=== PATIENT | female | born 1945 | race Caucasian/White ===

== ENCOUNTER → 2017-04-29 | Emergency (ER) | payer OTHER ==
[~2017-04-29] VITALS: Ht 160 cm; Wt 49.9 kg
[~2017-04-29] MED LIST: AMOX1TAB12 PO; AZITHROMYCIN500 MG PO; DIOVAN160 M1; DOLOGESIC CAPLE1 TAB PO; FEMARA2.5 MG; OSEL75CA PO; TUSICOF LIQUID120 ML PO; TUSSI PRES-B L120 M1 PO
== END | disposition home or self-care (01) ==
LOC: ER 00:51
DX: R42 Dizziness and giddiness (principal)

== ENCOUNTER 2018-03-29 08:19 | Outpatient (CLI) | payer OTHER | END 2018-03-29 08:28 | disposition home or self-care (01) | LOC: RAD 08:19 | DX: C50.411 Malignant neoplasm of upper-outer quadrant of right female breast (principal) ==

== ENCOUNTER 2018-11-17 09:24 | Emergency (ER) | payer OTHER ==
[~2018-11-17] VITALS: Ht 160 cm; Wt 56.2 kg
== END 2018-11-17 11:06 | disposition home or self-care (01) ==
LOC: ER 09:24
DX: K62.5 Hemorrhage of anus and rectum (principal)

== ENCOUNTER 2019-01-13 08:16 | Day surgery (SDC) | payer OTHER | END 2019-01-13 10:35 | disposition home or self-care (01) | LOC: AMB-ENDOS 08:16 | DX: K64.1 Second degree hemorrhoids (principal) ==

== ENCOUNTER 2020-07-17 11:34 | Emergency (ER) | payer OTHER ==
[~2020-07-17] VITALS: Ht 162.6 cm; Wt 56.2 kg
== END 2020-07-17 13:21 | disposition home or self-care (01) ==
LOC: ER 11:34
DX: S61.012A Laceration without foreign body of left thumb without damage to nail, initial encounter (principal); S61.412A Laceration without foreign body of left hand, initial encounter; S91.312A Laceration without foreign body, left foot, initial encounter; W55.01XA Bitten by cat, initial encounter; Y93.89 Activity, other specified; Y92.018 Other place in single-family (private) house as the place of occurrence of the external cause; Y99.8 Other external cause status

== ENCOUNTER 2020-08-10 15:32 | Emergency (ER) | payer OTHER ==
[~2020-08-10] VITALS: Ht 162.6 cm; Wt 56.2 kg
== END 2020-08-10 18:32 | disposition home or self-care (01) ==
LOC: ER 15:32
DX: S80.872A Other superficial bite, left lower leg, initial encounter (principal); W55.01XA Bitten by cat, initial encounter; Y93.89 Activity, other specified; Y92.89 Other specified places as the place of occurrence of the external cause; Y99.8 Other external cause status

== ENCOUNTER 2022-05-04 12:48 | Emergency (ER) | payer OTHER ==
[~2022-05-04] VITALS: Ht 162.6 cm; Wt 61.2 kg
== END 2022-05-04 19:13 | disposition home or self-care (01) ==
LOC: ER 12:48
DX: J40 Bronchitis, not specified as acute or chronic (principal); Z20.822 Contact with and (suspected) exposure to COVID-19

== ENCOUNTER 2024-01-31 18:44 | Emergency (ER) | payer OTHER ==
[~2024-01-31] VITALS: Ht 160 cm; Wt 60.8 kg
[2024-01-31] MEDS ORDERED: TAMOXIFEN CITRA10 MG PO (19:10)
[2024-01-31] MEDS ORDERED: CLONIDINE HCL 0.1 MG TABLET PO ONE (21:30)
== END 2024-01-31 23:54 | disposition home or self-care (01) ==
LOC: ER 18:45
DX: I10 Essential (primary) hypertension (principal); F41.9 Anxiety disorder, unspecified

== ENCOUNTER 2024-02-08 15:34 | Emergency (ER) | payer OTHER ==
[~2024-02-08] VITALS: Ht 160 cm; Wt 59.0 kg
[~2024-02-08 15:34] MED LIST changes: +TAMOXIFEN CITRA10 MG PO
[2024-02-08] MEDS ORDERED: COZAAR25 MG PO (15:58)
[2024-02-08] MEDS ORDERED: SULINDAC200 MG PO (15:59)
[2024-02-08] MEDS ORDERED: ORPHENADRINE CITRATE 30 MG/ML AMPUL IM STA (17:32)
[2024-02-08] MEDS ORDERED: KETOROLAC TROMETHAMINE 30 MG VIAL IM STA (17:32)
== END 2024-02-08 18:03 | disposition home or self-care (01) ==
LOC: ER 15:35
DX: M54.89 Other dorsalgia (principal); I10 Essential (primary) hypertension

== ENCOUNTER 2024-02-17 19:52 | Emergency (ER) | payer OTHER ==
[~2024-02-17] VITALS: Ht 160 cm; Wt 61.2 kg
[~2024-02-17 19:52] MED LIST changes: +COZAAR25 MG PO; +SULINDAC200 MG PO
[2024-02-17] MEDS ORDERED: KETOROLAC TROMETHAMINE 60 MG VIAL IM ONE (23:45)
[2024-02-17] MEDS ORDERED: DEXAMETHASONE SODIUM PHOSPHATE 4 MG/ML VIAL IM ONE (23:45)
== END 2024-02-18 00:15 | disposition home or self-care (01) ==
LOC: ER 19:53
DX: M54.89 Other dorsalgia (principal); I10 Essential (primary) hypertension
CPT/HCPCS: 96372; 99283; J1100; J1885